=== PATIENT | male | born 1995 | race Caucasian/White ===

== ENCOUNTER 2017-10-14 12:48 | Emergency (ER) | payer OTHER ==
[~2017-10-14] VITALS: Ht 167.6 cm; Wt 123.3 kg
[2017-10-14 14:05] LABS: HEMATOCRIT 45.4 % (38.0-50.0); MCH 28.7 PG (29.0-34.0); MCHC 34.1 G/DL (30.0-36.0); MCV 83.9 FL (86-99); MEAN PLAT.VOLUME 9.6 uM^3 (9.0-12.4); PLATELET COUNT 293 K/uL (156-360); RBC DIS.WIDTH-CV 12.8 % (11.8-14.6); RED BLOOD COUNT 5.41 M/uL (4.00-5.50); WHITE BLOOD COUNT 10.3 K/uL (4.1-10.2)
[2017-10-14 14:29] LABS: CHLORIDE 107 mEq/L (99-109); POTASSIUM 4.1 mEq/L (3.7-5.4); SODIUM 141 mEq/L (136-147)
[2017-10-14 14:30] LABS: GLUCOSE 100 mg/dL (70-99)
[2017-10-14 14:32] LABS: ANION GAP 12 MEQ/L (2-14)
[2017-10-14 14:34] LABS: GFR ESTIMATE (CALCULATED) > 59 mL/min/
[2017-10-14 14:35] LABS: UREA NITROGEN (BUN) 16 mg/dL (9-23)
[2017-10-14 15:32] LABS: ADD MIUA? NO; BILIRUBIN NEGATIVE; BLOOD NEGATIVE; COLOR YELLOW ((YELLOW)); GLUCOSE (STRIP) NEGATIVE; KETONES NEGATIVE; LEUKOCYTES NEGATIVE; NITRITE NEGATIVE; PROTEIN (STRIP) NEGATIVE; SPECIFIC GRAVITY 1.024 (1.000-1.030); UCUL ADDED? NO; UROBILINOGEN 0.2 MG/DL (0.2-1.0)
[2017-10-14] MEDS ORDERED: ATARAX,VISTARIL50 MG PO (16:58)
[2017-10-14 17:03] VITALS: BP 136/88
== END 2017-10-14 17:05 | disposition home or self-care (01) ==
LOC: EME 12:48
DX: R35.0 Frequency of micturition (principal); F41.9 Anxiety disorder, unspecified
CPT/HCPCS: 80048; 81003; 85027; 99281; 99284